=== PATIENT | male | born 1960 | race Caucasian/White ===

== ENCOUNTER → 2019-10-10 07:39 | Outpatient (CLI) | payer OTHER, SELFPAY ==
--- NOTE | 2019-10-10 07:42 | CA_ITS ---
APPROVED REPORT Exam: Exercise Treadmill Technologist: Tammy Carpenter Ht: 5 ft 8 in Wt: 150 lbs BSA: 1.81 m2 HR: 78 bpm BP: 132/74 mmHg Indications: Chest pain Medical History Medications: Vitamin C,,,,, Vitamin E,,,,, Vitamin D3,,,,, Vitamin A,,,,, Stress Test Details Test: Laura HR Resting HR: 80 bpm Max Heart Rate (APMHR): 164 bpm Max HR Achieved: 165 bpm Target HR (85% APMHR): 139 bpm % of APMHR: 100 Recovery HR: 94 bpm BP Resting BP: 132.0/74.0 mmHg Max BP: 168.0/82.0 mmHg Recovery BP: 150.0/72.0 mmHg ECG Clinical Reason for Termination: Dyspnea Exercise duration: 10:27 min Highest Stage Achieved: Exercise capacity: 12.8 METs Stress ECG Conclusion Resting ECG: Normal sinus rhythm. Symptoms: Chest pain (4/10) Arrhythmias/Ectopy: Occasional PAC, PVC ST-T Changes: < 1.[address] segment changes Conclusion: Positive stress test. Patient exercised on a laura protocol for 10 minutes and 27 seconds to peak heart rate of 165 bpm (target heart rate 139 bpm) without significant arrhythmias or ST segment changes. Occasional PAC and PVC noted. Less than 1.[address] segment changes noted. He did develop chest pain during peak stress (rated 4/10 and the same pain as he has been experiencing) which resolved in recovery. No accompanying images. Stress only. Total METS 12.8 with peak blood pressure 168/82 mmHg. Clinical correlation recommended. Test Summary Stage 3 02:00 14.0 3.4 138 . . . . REST . . . . . . . Standing REST 04:02 0.0 0.0 80 . 132/ 74 . . Stage 1 01:00 10.0 1.7 94 . . . . Stage 1 02:00 10.0 1.7 99 . . . . Stage 1 03:00 10.0 1.7 102 . 128/ 76 . . Stage 2 01:00 12.0 2.5 113 . . . . Stage 2 02:00 12.0 2.5 118 . . . . Stage 2 03:00 12.0 2.5 120 . 142/ 76 . . Stage 3 01:00 14.0 3.4 132 . . . . Stage 3 02:00 14.0 3.4 138 . . . . Stage 3 03:00 14.0 3.4 139 . 154/ 80 . . Stage 4 01:00 16.0 4.2 152 . . . . Stage 4 01:27 16.0 4.2 158 . . . Stop exercise at 10:27 RECOVERY 01:00 0.0 0.0 144 . 168/ 82 . . RECOVERY 02:00 0.0 0.0 122 . 168/ 82 . . RECOVERY 03:00 0.0 0.0 104 . 166/ 62 . . RECOVERY 04:00 0.0 0.0 104 . 166/ 62 . . RECOVERY 05:00 0.0 0.0 96 . 166/ 62 . . RECOVERY 06:00 0.0 0.0 95 . 166/ 62 . . RECOVERY 07:00 0.0 0.0 96 . 166/ 62 . . RECOVERY 07:25 0.0 0.0 92 . 150/ 72 . . Electronically signed by : Dom Lux, 10/10/2019 23:05:54
--- NOTE | 2019-10-10 07:42 | CA_ITS ---
APPROVED REPORT EXAM: Comprehensive 2D, Doppler, and color-flow Echocardiogram Jig Bore Tool Maker: Melissa Ovalle RDCS Ht: 5 ft 8 in Wt: 149lbs BSA: 1.80 BP: 137/73 mmHg Indications: CP 2D Dimensions LVOT 1.83 cm (M/F) 1.5-2.5 M-Mode Dimensions RVDd 3.21 cm (0.9-2.6) LVDd 4.61 cm (3.5-5.7) LVDs 3.43 cm (3.5-5.7) IVSd 0.82 cm (0.6-1.1) PWd 0.79 cm (0.6-1.1) EF (Teich) 50.40% FS 25.60% EDV (Teich) 97.80 mL ESV (Teich) 48.50 mL LV Diastology E/A Ratio 0.82 Mitral Valve MV A Velocity 66.00 (40-130 cm/s) Left Ventricle Left atrium is mildly enlarged, left ventricle is normal size, there is no concentric left ventricular hypertrophy, visually estimated ejection fraction 55% with no regional wall motion abnormality, grade 1 diastolic dysfunction seen without tissue Doppler evidence of raise left atrial pressure. Right Ventricle Right atrium and right ventricle are mildly enlarged with normal contractility. Aortic Valve Aortic valve is minimally thickened and fibrosed, there is no aortic stenosis or aortic insufficiency. Mitral Valve Mitral valve is grossly normal, there is mild mitral regurgitation. Tricuspid Valve Tricuspid valve is grossly normal, there is mild tricuspid regurgitation, tricuspid regurgitation jet velocity is inadequate for calculation of the right ventricular systolic pressure. Pulmonic Valve Pulmonic valve is poorly visualized. Great Vessels Aortic root is normal size. Pericardium No significant pericardial effusion noted. Conclusion 1. Normal left ventricular size, preserved left ventricular systolic function, visually estimated ejection fraction 55% with no regional wall motion abnormality, grade 1 diastolic dysfunction seen without tissue Doppler evidence of raise left atrial pressure. 2. Mildly enlarged right ventricle with normal contractility. 3. Mild mitral and tricuspid regurgitation. 4. No significant pericardial effusion noted. Electronically signed by : Dom Lux, 10/10/2019 23:12:39
== END ==
PROVIDERS: PCP Family Medicine; Visit Provider Nurse Practitioner Family
DX: R07.9 Chest pain, unspecified (principal); F17.200 Nicotine dependence, unspecified, uncomplicated; Z82.49 Family history of ischemic heart disease and other diseases of the circulatory system
CPT/HCPCS: 93017; 93306